=== PATIENT | male | born 1955 | race Caucasian/White ===

== ENCOUNTER 2018-10-24 10:47 | Emergency (ER) | payer MEDICARE, OTHER ==
[~2018-10-24] VITALS: Ht 193 cm; Wt 95.0 kg
[~2018-10-24 10:47] MED LIST: HYDR-4383 PO
[2018-10-24 10:49] VITALS: BP 159/90
[2018-10-24] MEDS ORDERED: CEPH-571 PO (11:02)
== END 2018-10-24 11:12 | disposition home or self-care (01) ==
LOC: ER 10:48
DX: S71.111D Laceration without foreign body, right thigh, subsequent encounter (principal); Z88.8 Allergy status to other drugs, medicaments and biological substances; X58.XXXD Exposure to other specified factors, subsequent encounter
CPT/HCPCS: 99283